=== PATIENT | female | born 1980 | race Caucasian/White ===

== ENCOUNTER → 2016-10-17 | Outpatient (CLI) | payer BC ==
[~2016-10-17] MED LIST: BACITRACIN15 G1 TP; NORCO 5-325 TA1 EACH PO; SYNTHROID100 MCG PO
== END | disposition home or self-care (01) ==
LOC: RAD.S 09:40
PROC: 0G9G3ZX Drainage of Left Thyroid Gland Lobe, Percutaneous Approach, Diagnostic (ICD-10-PCS; principal; 2016-10-17)
DX: E07.89 Other specified disorders of thyroid (principal)